=== PATIENT | male | born 1990 | race Caucasian/White ===

== ENCOUNTER 2025-03-09 18:47 | Emergency (ER) | payer SELFPAY ==
[2025-03-09] MEDS: NSS 1000 IV ×2 (18:53→19:41)
[2025-03-09 18:58] VITALS: BP 138/78; BMI 32.0
[2025-03-09 19:04] VITALS: BP 138/78
[2025-03-09 19:11] LABS: Hematocrit 44.6 % (39.0-52.0); Hemoglobin 15.1 g/dL (13.0-18.0); Mean Corp Hgb Conc. 33.9 g/dL (33.0-37.0); Mean Corpuscular Volume 87.3 fL (80.0-94.0); Platelet Count 256 10^3/uL (130-400); Red Cell Dist. Width 12.5 % (11.5-14.5)
--- NOTE | 2025-03-09 19:15 | ED.GENMED ---
History of Present Illness
General
Chief Complaint: Alcohol Problem
Source: spouse and ambulance crew
Exam Limitations: none
Time Seen by Provider: 03/09/25 18:50
History of Present Illness
History of Present Illness:
34-year-old male apparently was found passed out on his front lawn with his 2 children were riding their bikes at the house. This was a call and apparently by a neighbor. Patient is unable to add history. Upon arrival of the patient's spouse who
was at work, she states her mother was there until about 3:00. There was a bottle of [employer] vodka next to him on the ground. There was no signs of trauma. There was no signs of other ingestion. Spouse states there is no recent depression or
suicidal ideation. They did have an intervention about his alcohol use about 2 weeks ago. He apparently does tend to get belligerent when he is drunk and has been this intoxicated before.
Past History
Past History
ED Past Medical History: None
ED Past Surgical History: None
Social History
Tobacco: Non-smoker
Alcohol: None
Review of Systems
Review of Systems
Unable to obtain full review of systems at this time due to: due to acuity
All Other Systems: Not applicable
Phy Exam
Physical Exam
Physical Exam:
GENERAL: Alert. Intoxicated. Upset and at times crying. Will follow simple commands at times. No sign of head trauma
EYE: Orbits normal.
NECK: Supple, no significant adenopathy.
ENT: Pharynx without erythema
CARDIAC: Regular rate and rhythm without any obvious murmurs.
LUNGS: Clear breath sounds,normal
ABDOMEN: Soft, without focal tenderness or distention
NEUROLOGICAL: Alert. Grossly nonfocal. Intoxicated
SKIN: Warm and dry, no rash or lesion, no discoloration, skin intact.
MUSCULOSKELETAL: No edema,no deformity.Good color
PSYCH: Somewhat belligerent anxious.
Scores
Withdrawal Assessment of Alcohol
Withdrawal Assessment Completed?: Not applicable
Course
Orders/Labs/Results
Orders:
Orders
03/09/25 18:51
IV Insert/Care/Rem.- Treatment PRN
0.9% Sodium Chloride 1000 ml [Nss] 1,000 ml IV BOLUS
03/09/25 18:56
Acetaminophen Urgent
Alcohol Urgent
Complete Blood Count/With Diff Urgent
Comprehensive Metabolic Panel Urgent
Manual Differential Urgent
Salicylate Urgent
03/09/25 19:33
Urine Drug Abuse Screen Urgent
Date Specimen was Collected: 03/09/25
Time Specimen was Collected: 19:32
03/09/25 19:39
0.9% Sodium Chloride 1000 ml [Nss] 1,000 ml IV BOLUS
Abnormal Lab Results
03/09/25
18:56
Segmented Neutrophils 31 L %
(42-75)
Lymphocytes (Manual) 60 H %
(20-51)
Sodium 147 H mmol/L
(135-145)
Chloride 110 H mmol/L
(98-107)
Glucose 107 H mg/dl
(70-99)
AST 71 H U/L
(17-59)
ALT 128 H U/L
(0-50)
Total Protein 9.1 H g/dl
(6.3-8.2)
Albumin 5.5 H g/dl
(3.5-5.0)
Salicylates < 1.0 L mg/dl
(2.0-20.0)
Acetaminophen < 10 L ug/ml
(10-30)
Alcohol, Quantitative 423 H* mg/dl
03/09/25 18:56
03/09/25 18:56
Vital Signs
Initial and Last Documented VS:
Initial Vital Signs
Pulse Resp Pulse Ox
120 17 97
03/09/25 18:56 03/09/25 18:56 03/09/25 18:56
Last Documented Vital Signs
Temp Pulse Resp BP Pulse Ox
98.2 F 120 20 138/78 97
03/09/25 19:04 03/09/25 19:04 03/09/25 19:04 03/09/25 19:04 03/09/25 19:17
MDM/Problems Addressed
Differential Diagnosis Includes:
Lengthy discussion with the patient's . This appears to be an intoxication issue. Low suspicion for other serious etiology. Nothing to support head injury. We will observe him check electrolytes. Not describing any suicidal or homicidal
ideation.
*Pulse Oximetry
SaO2: 97
Oxygen Mode of Delivery: Room air
Patient hypoxic: no
*Critical Care Note
Total Time (30-74mins, 75-104mins- exclusive of procedures): Not Applicable
Update Note
Update Note:
2054... Patient is ambulating in the room. Intoxicated but much more alert and somewhat more cooperative. Reasonable to take the IV out. Patient can go home at some point in the near future if somebody takes responsibility for him. I find no
other serious issues. However he cannot leave on his own at this time.
2215.... Patient fully awake and alert. Talking on the phone. Not describing any suicidal ideation or plan. Has been relatively cooperative here although clearly anxious to leave. Awaiting family to come for him
2245... Patient's is coming and will be here at a few minutes past 11.... Patient has been cooperative. He is remorseful to what he did. He is not suicidal. I stressed he should call and follow-up for his alcohol issues.
ED Attending Note
-
Portions of this chart may have been created with voice recognition software.� Occasional wrong word or��sound alike� substitutions may have occurred due to the inherent limitations of voice recognition software.
Discharge Plan
Departure
Patient Disposition: Home (Routine Discharge)
Date of Disposition: 03/09/25
Time of Disposition: 22:41
Patient with high blood pressure during this ER visit?: No
Discharge Problem:
Acute alcohol intoxication, Alcohol abuse disorder
Instructions: Alcohol Use Disorder (DC)
Referrals:
UNKNOWN - PT NOT,INTERVIEWE [Family Provider]
Activity Restrictions/Additional Instructions:
We highly recommend you talk to [facility] and recommend rehabilitation
Interventions
Interventions:
*Risk Screen - Suicide Last Done: 03/09/25 19:04
*General Assessment Last Done: 03/09/25 19:04
*Neglect/Abuse Screening Last Done: 03/09/25 19:04
*ED- Fall Risk Assessment Last Done: 03/09/25 19:04
*ED COVID-19 Vaccine History Last Done: 03/09/25 19:04
*Nursing Disposition Last Done: 03/09/25 23:19
ED- Neurological Assessment Last Done: 03/09/25 19:04
ED-Psychological Assessment Last Done: 03/09/25 19:04
Discharge Date and Time
Discharge Date/Time: 03/09/25 23:20
Print Language: [email or web address]
[2025-03-09 19:34] LABS: Absolute Neutrophils -Man Diff 3.3 10^3/uL (1.4-6.5); Normal RBC Morphology Yes; Platelets Checked Yes; Total Cells Counted 100
[2025-03-09 19:37] LABS: ALT (SGPT) 128 U/L (0-50); AST (SGOT) 71 U/L (17-59); Acetaminophen < 10 ug/ml (10-30); Albumin 5.5 g/dl (3.5-5.0); Alkaline Phosphatase 56 U/L (38-126); Blood Urea Nitrogen 14 mg/dl (9-20); Calcium 10.1 mg/dl (8.4-10.2); Carbon Dioxide 22 mmol/L (22-30); Chloride 110 mmol/L (98-107); Estimated Creatinine Clearance > 125 ml/min; Glucose 107 mg/dl (70-99); Potassium 4.1 mmol/L (3.5-5.1); Salicylate < 1.0 mg/dl (2.0-20.0); Sodium 147 mmol/L (135-145); Total Protein 9.1 g/dl (6.3-8.2); eGFR > 60.00
== END 2025-03-09 23:20 | disposition home or self-care (01) ==
LOC: EMR 18:47
PROVIDERS: EMERGENCY PHYSICIAN Emergency Medicine
DX: F10.129 Alcohol abuse with intoxication, unspecified (principal); Y90.9 Presence of alcohol in blood, level not specified
CPT/HCPCS: 96360; 96361; 99284; 80053; 80143; 80179; 80306; 82077; 85025